=== PATIENT | male | born 1985 ===

== ENCOUNTER 2020-11-03 20:20 | Emergency (ER) | payer SELFPAY ==
[~2020-11-03] VITALS: Ht 177.8 cm; Wt 80.1 kg
[2020-11-03] MEDS ORDERED: LIDOCAINE 1%, 10ML INFIL ONE (20:30)
--- NOTE | 2020-11-03 22:35 | NUR ---
science technician: Pt ambulatory to room from lobby at this time.
[2020-11-03 22:43] VITALS: BP 108/80
[2020-11-03] MEDS ORDERED: LIDOCAINE-MPF 1%, 5ML ONE (22:46)
--- NOTE | 2020-11-03 23:38 | NUR ---
this rn went in to talk to pt about draining his abcess, pt got very upset, stated "fuck you guys, im leaving". pt grabbed his stuff and stormed out. refused paperwork.
== END 2020-11-03 23:43 | disposition left against medical advice (07) ==
LOC: ED 23:00
DX: L02.412 Cutaneous abscess of left axilla (principal)
CPT/HCPCS: 99283